=== PATIENT | female | born 1980 | race Caucasian/White ===

== ENCOUNTER 2024-07-23 12:45 | Observation (INO) | payer BC, MEDICAID, SELFPAY ==
[2024-07-23] VITALS (9 sets, daily range): BP systolic 101–130; BP diastolic 70–85; PULSE 77–96; RESP 11–20; TEMP 35.9–36.8; O2SAT 96–100; BMI 27.9; BMI 28.5
--- NOTE | 2024-07-23 12:57 | ED_ITS ---
<Statement entered by Elana Osborne DO - 07/23/24 15:27> I was consulted by the LLUVIA, and we discussed the complexity of the problems being addressed. I approved the treatment and management plan for this patient's care in the emergency department, thus performing a substantive portion of the medical decision making. Elana Osborne DO Discharge Plan Disposition Patient Disposition: Admitted Clinical Impressions Clinical Impression: Enterocolitis, Hypokalemia, Hypomagnesemia, Hypocalcemia Discharge ED Provider: Elana Osborne General Adult HPI <KRUNAL Cid - Last Filed: 07/23/24 14:55> General Chief complaint: Abdominal Pain Stated complaint: nausea, vomiting, diarrhea Time Seen by Provider: 07/23/24 12:57 Mode of Arrival: Ambulatory Source of Information: Patient Description of Symptoms (Recalled from ER Triage Doc. by RN): PT presents for evaluation of ABD pain, N/V and diarrhea x7 days. PT was on ABX for a UTI prior to GI issues. PT claims when she eats her stomach bloats and she has frequent belching. PT states the stool has a very foul odor starting today. History of Present Illness HPI narrative: Patient presents for evaluation of diarrhea. Patient states that she has had 7 days of copious amounts of diarrhea. It started with some abdominal cramping and vomiting however the vomiting has subsided but the watery stools have not. She is going greater than 10 times a day. She denies any current fever chills hemoptysis hematochezia melena hematemesis hematuria dysuria. As soon as she eats or drinks anything she has a bowel movement. She reports diffuse crampy abdominal pain with no focal tenderness. Related Data Allergies Allergy/AdvReac Type Severity Reaction Status Date / Time No Known Allergies Allergy Verified 07/23/24 13:13 PFSH <KRUNAL Cid - Last Filed: 07/23/24 14:55> [facility] Disclaimer: The information contained in this section may have been updated after the patient was seen, as this information can be updated by other users. Social History (Updated 07/23/24 @ 14:55 by KRUNAL Cid) Smoking Status: Never smoker alcohol intake: never current occupational status: employed Travel in the last 8 weeks?: None Have you lived/traveled outside US in past 30 days?: No Contact w/someone who lives/traveled outside US past 30 days?: No Exposure to someone with infectious disease in past 14 days?: No Do you have a fever (greater than 100.4 F or 38 C)?: No Have you tested positive for COVID-19?: No Exposed to someone with COVID-19 in past 14 days?: No Do you have a sore throat?: No Do you have a cough?: No Do you have any weakness?: Yes Do you have any diarrhea?: Yes Are you experiencing any unusual bleeding?: No Do you have any muscle aches/pain?: No Do you have any abdominal pain?: Yes Are you experiencing loss of taste or smell?: No <KRUNAL Cid - Last Filed: 07/23/24 14:55> ROS Obtained: Yes Systems reviewed as appropriate & no additional complaints except as documented Physical Exam <KRUNAL Cid - Last Filed: 07/23/24 14:55> General General appearance: alert and in no apparent distress Respiratory Respiratory exam: Present normal lung sounds bilaterally Cardiovascular Cardiovascular exam: Present regular rate Neurological Exam Neurological exam: Present alert and oriented X3 Medical Decision Making <KRUNAL Cid - Last Filed: 07/23/24 14:55> Medical Records Medical records reviewed: Yes I reviewed the patient's medical records. Screening: Per USPSTF and CDC recommendations, given the prevalence of disease in our region, it is our hospital?s policy to screen for HIV and viral Hepatitis for all patients aged 18 and over and those with ongoing risk factors. David Inquiry Pt receiving controlled substance: No Vital Signs: 07/23/24 12:47 07/23/24 13:18 07/23/24 14:00 Temperature 96.7 F L Temperature Source Oral Pulse Rate 77 91 H Pulse Rate [Right] 96 H Respiratory Rate 18 13 15 Blood Pressure 125/79 123/79 Blood Pressure [Right Arm] 107/80 L Blood Pressure Mean [Right Arm] 89 02 Sat by Pulse Oximetry 100 96 98 Oxygen Delivery Method Room Air Room Air 07/23/24 14:30 07/23/24 15:01 Temperature 98.2 F Temperature Source Pulse Rate 88 80 Pulse Rate [Right] Respiratory Rate 11 L 20 Blood Pressure 125/85 130/80 Blood Pressure [Right Arm] Blood Pressure Mean [Right Arm] 02 Sat by Pulse Oximetry 97 Oxygen Delivery Method Room Air Room Air Lab Data Lab results reviewed: Yes I reviewed the patient's lab results. Lab Results 07/23/24 13:10: Urine Color Yellow, Urine Appearance Sl cloudy, Urine pH 6.0, Ur Specific [place] <= 1.005, Urine Protein Negative, Urine Glucose (UA) Negative, Urine Ketones Negative, Urine Blood Negative, Urine Nitrate Negative, Urine Bilirubin Negative, Urine Urobilinogen 0.2, Ur Leukocyte Esterase Negative, Urine RBC None, Urine WBC None, Ur Squamous Epith Cells 10-20, Urine Bacteria Trace 07/23/24 13:18: WBC 10.2, RBC 5.35, Hgb 14.6, Hct 42.7, MCV 79.8 L, MCH 27.3, MCHC 34.2, RDW 13.2, Plt Count 334, MPV 10.3, Neut % (Auto) 67.6, Lymph % (Auto) 19.3, [place] % (Auto) 8.6, Eos % (Auto) 3.9, Baso % (Auto) 0.3, Neut # (Auto) 6.9, Lymph # (Auto) 2.0, [place] # (Auto) 0.9, Eos # (Auto) 0.4, Baso # (Auto) 0.0, ESR 13, Sodium 139, Potassium 2.6 L*, Chloride 103, Carbon Dioxide 28, Anion Gap 10.6, BUN 6 L, Creatinine 0.80, Estimated Creat Clear 113, Estimated GFR 79, Est GFR ( Amer) 95, Glucose 86, Calcium 8.0 L, Magnesium 1.1 L, Total Bilirubin 1.8 H, AST 50 H, ALT 85 H, Alkaline Phosphatase 69, C-Reactive Protein 40.7 H, Total Protein 7.5, Albumin 4.4, Globulin 3.1, Albumin/Globulin Ratio 1.4, Procalcitonin 0.052 07/23/24 13:18 07/23/24 13:18 Orders (Tests/Meds): ED MEDICATIONS Generic Name Dose Route Start Last Admin Trade Name Freq PRN Reason Stop Dose Admin Calcium Gluconate/Sodium Chloride 2 gm in 100 mls @ 50 mls/hr 07/23/24 13:54 07/23/24 14:04 Calcium Gluconate 2,000mg/100ml Nacl Premix IV 07/23/24 15:53 50 mls/hr ONCE ONE Administration Potassium Chloride/Water 100 mls @ 50 mls/hr 07/23/24 13:55 07/23/24 14:10 Potassium Chloride 20meq/100ml Ivpb IV 07/23/24 19:54 50 mls/hr Q2H GOLDEN Administration Discontinued Medications Generic Name Dose Route Start Last Admin Trade Name Freq PRN Reason Stop Dose Admin Sodium Chloride 1,000 mls @ 999 mls/hr 07/23/24 13:08 07/23/24 13:31 Sod Chlor 0.9% 1000ml Bag IV 07/23/24 14:08 999 mls/hr .Q1H1M ONE Administration Iopamidol 75 ml 07/23/24 13:24 07/23/24 13:24 Iopamidol-370 (76%);100ml Bottle IV 07/23/24 13:25 75 ml ONCE ONE Administration Ketorolac Tromethamine 15 mg 07/23/24 13:08 07/23/24 13:18 Ketorolac 30mg/Ml Vial IV 07/23/24 13:09 15 mg ONCE ONE Administration Ondansetron HCl 4 mg 07/23/24 13:08 07/23/24 13:18 Ondansetron 4mg/2ml Vial IV 07/23/24 13:09 4 mg ONCE ONE Administration Potassium Chloride 60 meq 07/23/24 13:53 07/23/24 14:04 Potassium Chloride 20meq Tab PO 07/23/24 13:54 60 meq ONCE ONE Administration Sodium Chloride 10 ml 07/23/24 13:24 07/23/24 13:24 Sodium Chloride 0.9% 10ml Syr (Rad Only) IV 07/23/24 13:25 10 ml ONCE ONE Administration ORDERS Category Date Time Status CT abdomen pelvis w con Stat Cat Scan 07/23/24 13:08 Completed CBC w/Auto Diff [Complete Blood Count Auto Diff] Stat Lab 07/23/24 13:18 Completed CMP [Comprehensive Metabolic Panel] Stat Lab 07/23/24 13:18 Completed CRP [C-Reactive Protein] Stat Lab 07/23/24 13:18 Completed Diarrhea 23 Panel, PCR Stat Lab 07/23/24 13:34 Received ESR [Erythrocyte Sedimentation Rate] Stat Lab 07/23/24 13:18 Completed Lactic Acid Stat Lab 07/23/24 13:09 Ordered Magnesium Stat Lab 07/23/24 13:18 Completed Procalcitonin Stat Lab 07/23/24 13:18 Completed UA [Urinalysis and Microscopic] Stat Lab 07/23/24 13:10 Completed Medical Decision Narrative: In summary patient is a 44-year-old female who presents to the emergency department for evaluation of 7 days of diarrhea. Patient is status post cholecystectomy appendectomy and total abdominal hysterectomy. She has had a history of uterine cancer but did not require radiation or chemotherapy. Patient is initially with a blood pressure of 107/80 heart rate 96 respiratory rate 18 satting at 100% on room air upon arrival, afebrile at 96.7. Physical exam is remarkable for mild abdominal tenderness diffusely no focal tenderness no rebound no guarding no rigidity abdomen soft bowel sounds hyperactive. Differential diagnosis includes enteritis versus diverticulitis versus pancreatitis versus UTI versus partial bowel obstruction etc. Initial workup will be conducted with hematologic labs diarrhea panel urinalysis CT scan abdomen pelvis. Initial interventions include crystalloid bolus and Zofran. Initial workup reviewed by me shows her hematologic labs significant for a white count of 10.2 normal H&H with no neutrophilic shift, potassium is 2.6 BUN is 6 creatinine is 0.8 GFR 79 calcium is 8 albumin is 4.4 magnesium is 1.1 total bilirubin is 1.8 AST is 50 ALT is 85 alk phos is 69 procalcitonin is 0.052 urinalysis is bland and my informal interpretation of her CT scan abdomen pelvis shows fluid-filled loops of large and small bowel with distal colonic wall thickening consistent with enterocolitis. Given this I had interactive discussion with hospital medicine regarding patient LINDER presentation and management and she will be admitted for further evaluation and care for enterocolitis and electrolyte abnormalities requiring repletion. I have already began potassium calcium and magnesium repletion IV currently. <Elana Osborne, DO - Last Filed: 07/23/24 15:27> Vital Signs: 07/23/24 12:47 07/23/24 13:18 07/23/24 14:00 Temperature 96.7 F L Temperature Source Oral Pulse Rate 77 91 H Pulse Rate [Right] 96 H Respiratory Rate 18 13 15 Blood Pressure 125/79 123/79 Blood Pressure [Right Arm] 107/80 L Blood Pressure Mean [Right Arm] 89 02 Sat by Pulse Oximetry 100 96 98 Oxygen Delivery Method Room Air Room Air 07/23/24 14:30 07/23/24 15:01 Temperature 98.2 F Temperature Source Pulse Rate 88 80 Pulse Rate [Right] Respiratory Rate 11 L 20 Blood Pressure 125/85 130/80 Blood Pressure [Right Arm] Blood Pressure Mean [Right Arm] 02 Sat by Pulse Oximetry 97 Oxygen Delivery Method Room Air Room Air Lab Data Lab Results 07/23/24 13:10: Urine Color Yellow, Urine Appearance Sl cloudy, Urine pH 6.0, Ur Specific [place] <= 1.005, Urine Protein Negative, Urine Glucose (UA) Negative, Urine Ketones Negative, Urine Blood Negative, Urine Nitrate Negative, Urine Bilirubin Negative, Urine Urobilinogen 0.2, Ur Leukocyte Esterase Negative, Urine RBC None, Urine WBC None, Ur Squamous Epith Cells 10-20, Urine Bacteria Trace 07/23/24 13:18: WBC 10.2, RBC 5.35, Hgb 14.6, Hct 42.7, MCV 79.8 L, MCH 27.3, MCHC 34.2, RDW 13.2, Plt Count 334, MPV 10.3, Neut % (Auto) 67.6, Lymph % (Auto) 19.3, [place] % (Auto) 8.6, Eos % (Auto) 3.9, Baso % (Auto) 0.3, Neut # (Auto) 6.9, Lymph # (Auto) 2.0, [place] # (Auto) 0.9, Eos # (Auto) 0.4, Baso # (Auto) 0.0, ESR 13, Sodium 139, Potassium 2.6 L*, Chloride 103, Carbon Dioxide 28, Anion Gap 10.6, BUN 6 L, Creatinine 0.80, Estimated Creat Clear 113, Estimated GFR 79, Est GFR ( Amer) 95, Glucose 86, Calcium 8.0 L, Magnesium 1.1 L, Total Bilirubin 1.8 H, AST 50 H, ALT 85 H, Alkaline Phosphatase 69, C-Reactive Protein 40.7 H, Total Protein 7.5, Albumin 4.4, Globulin 3.1, Albumin/Globulin Ratio 1.4, Procalcitonin 0.052 Orders (Tests/Meds): ED MEDICATIONS Generic Name Dose Route Start Last Admin Trade Name Freq PRN Reason Stop Dose Admin Calcium Gluconate/Sodium Chloride 2 gm in 100 mls @ 50 mls/hr 07/23/24 13:54 07/23/24 14:04 Calcium Gluconate 2,000mg/100ml Nacl Premix IV 07/23/24 15:53 50 mls/hr ONCE ONE Administration Potassium Chloride/Water 100 mls @ 50 mls/hr 07/23/24 13:55 07/23/24 14:10 Potassium Chloride 20meq/100ml Ivpb IV 07/23/24 19:54 50 mls/hr Q2H GOLDEN Administration Discontinued Medications Generic Name Dose Route Start Last Admin Trade Name Freq PRN Reason Stop Dose Admin Sodium Chloride 1,000 mls @ 999 mls/hr 07/23/24 13:08 07/23/24 13:31 Sod Chlor 0.9% 1000ml Bag IV 07/23/24 14:08 999 mls/hr .Q1H1M ONE Administration Iopamidol 75 ml 07/23/24 13:24 07/23/24 13:24 Iopamidol-370 (76%);100ml Bottle IV 07/23/24 13:25 75 ml ONCE ONE Administration Ketorolac Tromethamine 15 mg 07/23/24 13:08 07/23/24 13:18 Ketorolac 30mg/Ml Vial IV 07/23/24 13:09 15 mg ONCE ONE Administration Ondansetron HCl 4 mg 07/23/24 13:08 07/23/24 13:18 Ondansetron 4mg/2ml Vial IV 07/23/24 13:09 4 mg ONCE ONE Administration Potassium Chloride 60 meq 07/23/24 13:53 07/23/24 14:04 Potassium Chloride 20meq Tab PO 07/23/24 13:54 60 meq ONCE ONE Administration Sodium Chloride 10 ml 07/23/24 13:24 07/23/24 13:24 Sodium Chloride 0.9% 10ml Syr (Rad Only) IV 07/23/24 13:25 10 ml ONCE ONE Administration ORDERS Category Date Time Status CT abdomen pelvis w con Stat Cat Scan 07/23/24 13:08 Completed CBC w/Auto Diff [Complete Blood Count Auto Diff] Stat Lab 07/23/24 13:18 Completed CMP [Comprehensive Metabolic Panel] Stat Lab 07/23/24 13:18 Completed CRP [C-Reactive Protein] Stat Lab 07/23/24 13:18 Completed Diarrhea 23 Panel, PCR Stat Lab 07/23/24 13:34 Received ESR [Erythrocyte Sedimentation Rate] Stat Lab 07/23/24 13:18 Completed Lactic Acid Stat Lab 07/23/24 13:09 Ordered Magnesium Stat Lab 07/23/24 13:18 Completed Procalcitonin Stat Lab 07/23/24 13:18 Completed UA [Urinalysis and Microscopic] Stat Lab 07/23/24 13:10 Completed Critical Care <KRUNAL Cid - Last Filed: 07/23/24 14:55> Critical Care Time Critical Care Time: Yes Attestation: On 07/23/24, the high probability of a clinically significant, sudden or life threatening deterioration of the following system(s) required my full and direct attention, intervention and personal management. The time I documented below is in addition to time spent performing reported procedures but includes the following listed in this critical care notation. Total Time Total Critical Care Time: 30 <Elana Osborne DO - Last Filed: 07/23/24 15:27> Total Time Total Critical Care Time: 35
--- NOTE | 2024-07-23 13:08 | CT_ITS ---
FINAL REPORT TECHNIQUE: Thin section axial images were obtained through the abdomen after intravenous contrast. Reconstruction images were obtained from the axial data. Exam was performed using dose reduction techniques. CLINICAL HISTORY: 7 days of diarrhea nausea FINDINGS: The lung bases are clear. The liver is homogeneous. The gallbladder is absent. The spleen, adrenal glands, and pancreas are unremarkable. There is no hydronephrosis or solid renal mass. There is no evidence of small bowel obstruction. There is no abdominal lymphadenopathy or ascites. There are mildly prominent fluid-filled small bowel loops. The colon is mildly distended with fluid and there is mild distal colonic wall thickening. Findings are most consistent with enterocolitis. The appendix is surgically absent. The uterus is absent. There is no pelvic lymphadenopathy or ascites. No acute osseous abnormalities identified. IMPRESSION: Fluid-filled large and small bowel loops with distal colon wall thickening most consistent with enterocolitis. Reviewed, Interpreted and Dictated by Charissa Meeks MD Transcribed by Anahi Vitale Authenticated and . [facility]
[2024-07-23] MEDS: KETOROLAC 30MG/ML VIAL 15 MG IV (13:18)
[2024-07-23] MEDS: ONDANSETRON 4MG/2ML VIAL 4 MG IV ×2 (13:18→22:30)
[2024-07-23] MEDS: IOPAMIDOL-370 (76%);100ML BOTTLE 75 ML IV (13:24)
[2024-07-23] MEDS: SODIUM CHLORIDE 0.9% 10ML SYR (RAD ONLY) 10 ML IV (13:24)
[2024-07-23 13:27] LABS: Basophils % 0.3 % (0.1-2.0); Eosinophils # 0.4 Kmm3 (0.0-0.4); Eosinophils % 3.9 % (0.1-12.0); Hematocrit 42.7 % (37.0-47.0); Hemoglobin 14.6 g/dL (12.2-16.2); Immature Granulocytes # 0.03 10^3uL; Immature Granulocytes % 0.3 %; Lymphocytes % 19.3 % (10-50); Mean Corpuscular HGB Conc 34.2 g/dL (31.8-35.4); Mean Corpuscular Hemoglobin 27.3 pg (27.0-31.2); Mean Corpuscular Volume 79.8 fl (81-99); Mean Platelet Volume 10.3 fl (7.4-10.4); Monocytes # 0.9 K/mm3 (0.1-1.0); Monocytes % 8.6 % (1.7-9.3); Neutrophils # 6.9 K/mm3 (1.8-7.8); Neutrophils % 67.6 % (37.0-80.0); Nucleated Red Blood Cells # 0 10^3/uL; Nucleated Red Blood Cells % 0 %; Platelet Count 334 K/mm3 (142-424); Red Blood Count 5.35 M/mm3 (4.20-5.40); Red Cell Distribution Width 13.2 % (11.5-17.5); Red Cell Distribution Width-SD 37.2 fL; White Blood Count 10.2 K/mm3 (4.8-10.8)
[2024-07-23] MEDS: 0.9 % SODIUM CHLORIDE 1000ML 1,000 ML 999 ML IV (13:31)
[2024-07-23 13:40] LABS: Microscopic, Urine URINE MICROSCOPIC (MICROSCOPIC)
[2024-07-23 13:40] LABS: Adenovirus F 40/41, stool Not Detected (NotDetected); Astrovirus Not Detected (NotDetected); Campylobacter Not Detected (NotDetected); Clostridium Difficile A/B, PCR Not Detected (NotDetected); Cryptosporidium Not Detected (NotDetected); Cyclospora Cayetanesis Not Detected (NotDetected); Entamoeba histolytica Not Detected (NotDetected); Enteroaggregative E coli Not Detected (NotDetected); Enteropathogenic E coli Not Detected (NotDetected); Enterotoxigenic E coli Not Detected (NotDetected); Giardia lamblia Not Detected (NotDetected); Norovirus Not Detected (NotDetected); Plesimonas Shigalloides, PCR Not Detected (NotDetected); Rotavirus A Not Detected (NotDetected); Salmonella, PCR Not Detected (NotDetected); Sapovirus Not Detected (NotDetected); Shiga-like toxin E coli Not Detected (NotDetected); Shigella Enterovasive E coli Not Detected (NotDetected); Vibrio Cholerae Not Detected (NotDetected); Vibrio, PCR Not Detected (NotDetected); Yersinia Entercolitica, PCR Not Detected (NotDetected)
[2024-07-23 13:42] LABS: Alanine Aminotransferase 85 U/L (12-78); Albumin Level 4.4 g/dl (3.5-5.0); Albumin/Globulin Ratio 1.4 (1.1-1.8); Alkaline Phosphatase 69 U/L (38-126); Anion Gap 10.6 mEq/L (5-15); Aspartate Amino Transferase 50 U/L (14-36); Bilirubin,Total 1.8 mg/dl (0.2-1.3); Blood Urea Nitrogen 6 mg/dl (7-17); Carbon Dioxide 28 mmol/L (22.0-30.0); Chloride 103 mmol/L (98-107); Creatinine Clearance Estimated 113 mL/min (50-200); Estimated Glomerular Filt Rate 79 ml/min (>60); GFR (African American) 95 ML/MIN (>60); Globulin 3.1 g/dL (1.3-3.2); Glucose 86 mg/dl (74-100); Sodium 139 mmol/L (136-145); Total Protein,Serum 7.5 g/dl (6.3-8.2)
[2024-07-23 13:43] LABS: Magnesium 1.1 mg/dl (1.6-2.3)
[2024-07-23 13:45] LABS: Appearance,Urine SL CLOUDY (Clear); Bilirubin,Urine Negative (Negative); Blood, Urine Negative (Negative); Color,Urine YELLOW (Yellow); Glucose,Urine (UA) Negative (Negative); Ketones,Urine Negative (Negative); Leukocyte Esterase,Urine Negative (Negative); Nitrate,Urine Negative (Negative); Protein,Urine Negative (Negative); Specific Gravity, Urine <= 1.005 (1.005-1.030); Urobilinogen,Urine 0.2 EU/dl (0.2)
[2024-07-23 13:47] LABS: C-Reactive Protein 40.7 mg/L (0-4)
[2024-07-23 13:49] LABS: Potassium 2.6 mmoL/L (3.5-5.1)
[2024-07-23 13:58] LABS: Procalcitonin 0.052 ng/mL (0.0-2.0)
[2024-07-23 14:04] LABS: Bacteria,Urine Trace /lpf
[2024-07-23] MEDS: POTASSIUM CHLORIDE 20MEQ TAB 60 MEQ PO (14:04)
[2024-07-23] MEDS: CALCIUM GLUC IN NACL, ISO-OSM 2 GM/100 ML BAG IV (14:04)
[2024-07-23] MEDS: KCl 20mEq/100ml 100 ML 50 MEQ IV ×3 (14:10→17:42)
[2024-07-23 14:20] LABS: Erythrocyte Sedimentation Rate 13 mm/hr (0-20)
--- NOTE | 2024-07-23 14:49 | PC.NURSE ---
called house for bed placement.
--- NOTE | 2024-07-23 15:52 | EXP.HP ---
History of Present Illness *Admission Date: 07/23/24 *Reason for visit:: Diarrhea *History of present illness: Mckenzie Miller is a 44-year-old female with a medical history significant for rheumatoid arthritis who presents with profuse diarrhea for a week and weakness. She states she is having diarrhea several times a day, very loose, dark, foul-smelling for 1 week. She initially started with nausea/vomiting but the vomiting has subsided but continues to have nausea. She also states she feels bloated after eating, and that she has diffuse mild abdominal pain. No recent travel history, changes diet. She does state that she was treated for UTI with Bactrim for 3 days about 5 days ago but her diarrhea was already present by then. Denies fever/chills, chest pain, shortness of breath. Of note, patient has a strong family history of Crohn's disease. Workup in the ED significant for potassium 2.6, magnesium 1.1, AST/ALT mildly elevated, CRP 40, MCV of 79.8. CT abdomen/pelvis showed consistent with enterocolitis. Case discussed with ED provider and she was made to admit patient for severe electrolyte abnormalities, diarrhea. [facility] Disclaimer: The information contained in this section may have been updated after the patient was seen, as this information can be updated by other users. Medical History (Updated 07/23/24 @ 16:43 by Jody Kumar APRN) UTI (urinary tract infection) Uterine cancer Pneumonia Rheumatoid arthritis Asthma Family History (Updated 07/23/24 @ 16:02 by Melida Joseph RN) Other Acute Crohn's disease Dementia Heart attack Hyperlipidemia Hypertension Renal failure Social History (Updated 07/23/24 @ 16:04 by Melida Joseph RN) Smoking Status: Never smoker alcohol intake: never current occupational status: employed Travel in the last 8 weeks?: None Have you lived/traveled outside US in past 30 days?: No Contact w/someone who lives/traveled outside US past 30 days?: No Exposure to someone with infectious disease in past 14 days?: No Do you have a fever (greater than 100.4 F or 38 C)?: No Have you tested positive for COVID-19?: No Exposed to someone with COVID-19 in past 14 days?: No Do you have a sore throat?: No Do you have a cough?: No Do you have any weakness?: Yes Do you have any diarrhea?: Yes Are you experiencing any unusual bleeding?: No Do you have any muscle aches/pain?: No Do you have any abdominal pain?: Yes Are you experiencing loss of taste or smell?: No Meds Home Medications and Allergies Home Medications ?Medication ?Instructions ?Recorded ?Confirmed ?Type cyclobenzaprine 10 mg tablet 10 mg PO BID 07/23/24 07/23/24 History diclofenac sodium 75 mg 75 mg PO BID PRN Pain (Scale Score 07/23/24 07/23/24 History tablet,delayed release 4-6) dicyclomine 20 mg tablet 20 mg PO BID 07/23/24 07/23/24 History linaclotide 145 mcg capsule 145 mcg PO DAILY 07/23/24 07/23/24 History (Linzess) loperamide 2 mg capsule 2 mg PO TID 07/23/24 07/23/24 History montelukast 10 mg tablet 10 mg PO DAILY 07/23/24 07/23/24 History ondansetron 4 mg disintegrating 4 mg PO Q8 07/23/24 07/23/24 History tablet vortioxetine 20 mg tablet 20 mg PO DAILY 07/23/24 07/23/24 History (Trintellix) New Prescriptions to Start Prescriptions: Allergies Allergy/AdvReac Type Severity Reaction Status Date / Time No Known Allergies Allergy Verified 07/23/24 13:13 Exam Data for Last 24 hours Vital signs and Labs for Last 24 Hours: Temp Pulse Resp BP Pulse Ox O2 Del Method 97.9 F 81 17 101/70 L 98 Room Air 07/23/24 15:14 07/23/24 15:14 07/23/24 15:14 07/23/24 15:14 07/23/24 15:14 07/23/24 15:01 Laboratory Results - last 24 hr 07/23/24 13:10: Urine Color Yellow, Urine Appearance Sl cloudy, Urine pH 6.0, Ur Specific [place] <= 1.005, Urine Protein Negative, Urine Glucose (UA) Negative, Urine Ketones Negative, Urine Blood Negative, Urine Nitrate Negative, Urine Bilirubin Negative, Urine Urobilinogen 0.2, Ur Leukocyte Esterase Negative, Urine RBC None, Urine WBC None, Ur Squamous Epith Cells 10-20, Urine Bacteria Trace 07/23/24 13:18: WBC 10.2, RBC 5.35, Hgb 14.6, Hct 42.7, MCV 79.8 L, MCH 27.3, MCHC 34.2, RDW 13.2, Plt Count 334, MPV 10.3, Neut % (Auto) 67.6, Lymph % (Auto) 19.3, [place] % (Auto) 8.6, Eos % (Auto) 3.9, Baso % (Auto) 0.3, Neut # (Auto) 6.9, Lymph # (Auto) 2.0, [place] # (Auto) 0.9, Eos # (Auto) 0.4, Baso # (Auto) 0.0, ESR 13, Sodium 139, Potassium 2.6 L*, Chloride 103, Carbon Dioxide 28, Anion Gap 10.6, BUN 6 L, Creatinine 0.80, Estimated Creat Clear 113, Estimated GFR 79, Est GFR ( Amer) 95, Glucose 86, Calcium 8.0 L, Magnesium 1.1 L, Total Bilirubin 1.8 H, AST 50 H, ALT 85 H, Alkaline Phosphatase 69, C-Reactive Protein 40.7 H, Total Protein 7.5, Albumin 4.4, Globulin 3.1, Albumin/Globulin Ratio 1.4, Procalcitonin 0.052 I & O for Last 24 hours: Intake & Output 07/20/24 07/21/24 07/22/24 07/23/24 23:59 23:59 23:59 23:59 Intake Total 155 / 155 Balance 155 / 155 Weight 80.286 kg Constitutional Constitutional: no acute distress *Routine HEENT Exam Head: Present normocephalic Eye: Present EOMI and PERRL ENT: Present mucous membranes moist *Routine Neck Exam Neck: Present supple; Absent lymphadenopathy *Routine Respiratory Exam Respiratory: Present CTA bilaterally *Routine Cardiovascular Exam Cardiovascular: Present RRR *Routine Abdominal Exam Abdominal: Present soft, normoactive bowel sounds, tenderness and distended Comments: Mild diffuse tenderness to palpation. *Routine Rectal Exam Rectal:: deferred *Routine Genitalia Exam Genitalia:: deferred *Routine Extremities Exam Extremities: Absent cyanosis, clubbing or edema *Routine Skin Exam Skin: Present warm; Absent rash *Routine Neurological Exam Neurological: Present alert and oriented X3 Assessment and Plan *Assessment and plan (1) Acute gastroenteritis: Status: Acute Category: Medical Code(s): K52.9 - Noninfective gastroenteritis and colitis, unspecified Plan Mckenzie Miller is a 44-year-old female with a medical history significant for rheumatoid arthritis who presents with profuse diarrhea for a week and weakness. She states she is having diarrhea several times a day, very loose, dark, foul-smelling for 1 week. She initially started with nausea/vomiting but the vomiting has subsided but continues to have nausea. She also states she feels bloated after eating, and that she has diffuse mild abdominal pain. No recent travel history, changes diet. She does state that she was treated for UTI with Bactrim for 3 days about 5 days ago but her diarrhea was already present by then. Denies fever/chills, chest pain, shortness of breath. Of note, patient has a strong family history of Crohn's disease. Workup in the ED significant for potassium 2.6, magnesium 1.1, AST/ALT mildly elevated, CRP 40, MCV of 79.8. CT abdomen/pelvis showed consistent with enterocolitis. Case discussed with ED provider and she was made to admit patient for severe electrolyte abnormalities, diarrhea. #Intractable diarrhea #Gastroenteritis #Hypokalemia #Hypomagnesemia ? One week onset of profuse, watery, foul-smelling diarrhea. Was on Bactrim for 3 days but diarrhea had already started by then. Has had multiple UTIs in the past year requiring antibiotics. ? Does have mildly elevated AST/ALT suggesting viral illness. Renal function stable. ? Follow-up stool PCR. However, presentation suspicious for C. difficile. Will treat empirically for now until stool PCR results. ? Repleting potassium, magnesium. ? Continuous cardiac telemetry. #Microcytosis ? Follow-up iron panel, folate, B12. #Rheumatoid arthritis ? Continue weekly Trintellix. Full code DVT prophylaxis: Lovenox 40 mg
--- NOTE | 2024-07-23 16:42 | EXP.GE.CONS ---
History of Present Illness *History of present illness: This is a pleasant 44-year-old female who presented to the ER with complaints of a week of nausea vomiting and diarrhea. She has had poor p.o. intake of bloating with eating and abdominal cramping with eating. She reports that the vomiting stopped about 2 days ago but she still having nausea and diarrhea. The patient normally has chronic constipation and takes Linzess. This is an abrupt change for her. Her CRP was elevated at 40.7 although sed rate normal. CBC was relatively unremarkable. No melena hematochezia or mucus in her stool. She is going 10-14 times a day with several electrolyte imbalances, including calcium, magnesium and potassium. She is moderately distended with gas bloat and tender to palpation throughout her abdomen. She has been on antibiotics a couple times in the past [address] scan showed mild colonic wall thickening consistent with enterocolitis. She has a family history of Crohn's disease in her brother and her mother. She has had a colonoscopy with that was 10 years ago. She also had elevated CRP at 40.7 and elevated bilirubin at 1.8, AST elevated at 50, ALT elevated 85 and an alk phos of 69. She denies known elevations in her liver enzymes previously but she does note that she thinks she had some scleral icterus a few months ago. [facility] Disclaimer: The information contained in this section may have been updated after the patient was seen, as this information can be updated by other users. Medical History (Updated 07/23/24 @ 16:43 by Jody Kumar APRN) UTI (urinary tract infection) Uterine cancer Pneumonia Rheumatoid arthritis Asthma Family History (Updated 07/23/24 @ 16:02 by Melida Joseph RN) Other Acute Crohn's disease Dementia Heart attack Hyperlipidemia Hypertension Renal failure Social History (Updated 07/23/24 @ 16:04 by Melida Joseph RN) Smoking Status: Never smoker alcohol intake: never current occupational status: employed Travel in the last 8 weeks?: None Have you lived/traveled outside [place] in past 30 days?: No Contact w/someone who lives/traveled outside US past 30 days?: No Exposure to someone with infectious disease in past 14 days?: No Do you have a fever (greater than 100.4 F or 38 C)?: No Have you tested positive for COVID-19?: No Exposed to someone with COVID-19 in past 14 days?: No Do you have a sore throat?: No Do you have a cough?: No Do you have any weakness?: Yes Do you have any diarrhea?: Yes Are you experiencing any unusual bleeding?: No Do you have any muscle aches/pain?: No Do you have any abdominal pain?: Yes Are you experiencing loss of taste or smell?: No Review of Systems Review of Systems Review of systems:: pertinent systems reviewed and negative unless documented below Constitutional Constitutional: Reports system reviewed and no additional complaints, except as documented and Reports poor appetite Eyes Comments: Scleral icterus a few months ago ENT Ears, Nose, Mouth, and Throat: Reports system reviewed and no additional complaints, except as documented *Cardiovascular Cardiovascular: Reports system reviewed and no additional complaints, except as documented *Respiratory Respiratory: Reports system reviewed and no additional complaints, except as documented *Gastrointestinal Gastrointestinal: Reports abdominal pain, Reports bloating, Reports change in bowel habits, Reports change in stool character, Reports cramping, Reports diarrhea, Reports early satiety, Reports nausea and Reports vomiting Comments: Dark stools *Genitourinary Genitourinary: Reports system reviewed and no additional complaints, except as documented *Musculoskeletal Musculoskeletal: Reports system reviewed and no additional complaints, except as documented *Neurologic Neurologic: Reports system reviewed and no additional complaints, except as documented Meds Home Medications and Allergies Home Medications ?Medication ?Instructions ?Recorded ?Confirmed ?Type cyclobenzaprine 10 mg tablet 10 mg PO BID 07/23/24 07/23/24 History diclofenac sodium 75 mg 75 mg PO BID PRN Pain (Scale Score 07/23/24 07/23/24 History tablet,delayed release 4-6) dicyclomine 20 mg tablet 20 mg PO BID 07/23/24 07/23/24 History linaclotide 145 mcg capsule 145 mcg PO DAILY 07/23/24 07/23/24 History (Linzess) loperamide 2 mg capsule 2 mg PO TID 07/23/24 07/23/24 History montelukast 10 mg tablet 10 mg PO DAILY 07/23/24 07/23/24 History ondansetron 4 mg disintegrating 4 mg PO Q8 07/23/24 07/23/24 History tablet vortioxetine 20 mg tablet 20 mg PO DAILY 07/23/24 07/23/24 History (Trintellix) New Prescriptions to Start Prescriptions: Allergies Allergy/AdvReac Type Severity Reaction Status Date / Time No Known Allergies Allergy Verified 07/23/24 13:13 Exam (Inpt) Vital signs and Labs for Last 24 Hours: Temp Pulse Resp BP Pulse Ox O2 Del Method 97.9 F 81 17 101/70 L 98 Room Air 07/23/24 15:14 07/23/24 15:14 07/23/24 15:14 07/23/24 15:14 07/23/24 15:14 07/23/24 16:36 Laboratory Results - last 24 hr 07/23/24 13:10: Urine Color Yellow, Urine Appearance Sl cloudy, Urine pH 6.0, Ur Specific [place] <= 1.005, Urine Protein Negative, Urine Glucose (UA) Negative, Urine Ketones Negative, Urine Blood Negative, Urine Nitrate Negative, Urine Bilirubin Negative, Urine Urobilinogen 0.2, Ur Leukocyte Esterase Negative, Urine RBC None, Urine WBC None, Ur Squamous Epith Cells 10-20, Urine Bacteria Trace 07/23/24 13:18: WBC 10.2, RBC 5.35, Hgb 14.6, Hct 42.7, MCV 79.8 L, MCH 27.3, MCHC 34.2, RDW 13.2, Plt Count 334, MPV 10.3, Neut % (Auto) 67.6, Lymph % (Auto) 19.3, [place] % (Auto) 8.6, Eos % (Auto) 3.9, Baso % (Auto) 0.3, Neut # (Auto) 6.9, Lymph # (Auto) 2.0, [place] # (Auto) 0.9, Eos # (Auto) 0.4, Baso # (Auto) 0.0, ESR 13, Sodium 139, Potassium 2.6 L*, Chloride 103, Carbon Dioxide 28, Anion Gap 10.6, BUN 6 L, Creatinine 0.80, Estimated Creat Clear 113, Estimated GFR 79, Est GFR ( Amer) 95, Glucose 86, Calcium 8.0 L, Magnesium 1.1 L, Total Bilirubin 1.8 H, AST 50 H, ALT 85 H, Alkaline Phosphatase 69, C-Reactive Protein 40.7 H, Total Protein 7.5, Albumin 4.4, Globulin 3.1, Albumin/Globulin Ratio 1.4, Procalcitonin 0.052 I & O for Labs for Last 24 Hours: Intake & Output 07/21/24 07/22/24 07/23/24 07/24/24 11:59 11:59 11:59 11:59 Intake Total 155 Balance 155 Weight 80.286 kg Constitutional: no acute distress Head: Present normocephalic and atraumatic Respiratory: Present CTA bilaterally Cardiac: Present Reg Rate and Rhythm GI: Present soft, distention (Moderately distended), tenderness (TTP throughout abdomen) and hyperactive bowel sounds Skin: Present intact Results Labs 07/23/24 13:18 07/23/24 13:18 Labs: Laboratory Results - last 24 hr 07/23/24 13:10: Urine Color Yellow, Urine Appearance Sl cloudy, Urine pH 6.0, Ur Specific [place] <= 1.005, Urine Protein Negative, Urine Glucose (UA) Negative, Urine Ketones Negative, Urine Blood Negative, Urine Nitrate Negative, Urine Bilirubin Negative, Urine Urobilinogen 0.2, Ur Leukocyte Esterase Negative, Urine RBC None, Urine WBC None, Ur Squamous Epith Cells 10-20, Urine Bacteria Trace 07/23/24 13:18: WBC 10.2, RBC 5.35, Hgb 14.6, Hct 42.7, MCV 79.8 L, MCH 27.3, MCHC 34.2, RDW 13.2, Plt Count 334, MPV 10.3, Neut % (Auto) 67.6, Lymph % (Auto) 19.3, [place] % (Auto) 8.6, Eos % (Auto) 3.9, Baso % (Auto) 0.3, Neut # (Auto) 6.9, Lymph # (Auto) 2.0, [place] # (Auto) 0.9, Eos # (Auto) 0.4, Baso # (Auto) 0.0, ESR 13, Sodium 139, Potassium 2.6 L*, Chloride 103, Carbon Dioxide 28, Anion Gap 10.6, BUN 6 L, Creatinine 0.80, Estimated Creat Clear 113, Estimated GFR 79, Est GFR ( Amer) 95, Glucose 86, Calcium 8.0 L, Magnesium 1.1 L, Total Bilirubin 1.8 H, AST 50 H, ALT 85 H, Alkaline Phosphatase 69, C-Reactive Protein 40.7 H, Total Protein 7.5, Albumin 4.4, Globulin 3.1, Albumin/Globulin Ratio 1.4, Procalcitonin 0.052 Assessment and Plan *Assessment and plan (1) Acute gastroenteritis: Status: Acute Category: Medical Code(s): K52.9 - Noninfective gastroenteritis and colitis, unspecified (2) Family history of Crohn's disease: Status: Acute Category: Medical Code(s): Z83.79 - Family history of other diseases of the digestive system (3) Elevated LFTs: Status: Acute Category: Medical Code(s): R79.89 - Other specified abnormal findings of blood chemistry (4) Hyperbilirubinemia: Status: Acute Category: Medical Code(s): E80.6 - Other disorders of bilirubin metabolism Plan 1. Acute gastroenteritis/family history of Crohn's disease/enterocolitis 1 week of nausea vomiting and diarrhea, vomiting stopped 2 days ago but still nausea with diarrhea and abdominal pain especially after eating. No known exposures to anyone else with similar symptoms. No melena or hematochezia or mucus in her stool. A lot of bloating when eating and abdominal distention on exam. Both brother and mom have Crohn's disease. Her last colonoscopy was about 10 years ago. She does have an elevated CRP at 40.7 but she is acutely ill, awaiting PCR panel, it sounds like an acute viral gastroenteritis but she has been on antibiotics a couple of times in the past 6 months, somewhat concerning for C. difficile. Given her family history I would add on a fecal calprotectin. I recommend follow-up as an outpatient with our office. She is going to need an outpatient colonoscopy. 2. Elevated liver enzymes/hyperbilirubinemia Patient denies known elevated liver enzymes but believes that she has had some scleral icterus previously. You can sometimes see these elevated liver enzymes with an acute viral syndrome. We can follow-up as an outpatient. I would like to add on conjugated versus unconjugated bilirubin for a.m. labs if this has happened before.
[2024-07-23] MEDS: LACTATED RINGERS 1000ML 1,000 ML 125 ML IV (16:58)
[2024-07-23] MEDS: MAGNESIUM SULFATE IN WATER 2 GM/50 ML PIGGYBACK IV ×3 (16:58→22:29)
[2024-07-23 17:03] LABS: Lactic Acid 1.5 mmol/L (0.7-2.1)
[2024-07-23] MEDS: VANCOMYCIN HCL 50MG/ML 150ML KIT 125 MG PO (19:58)
[2024-07-23 21:59] LABS: Iron 45 ug/dL (37-170)
[2024-07-23 22:09] LABS: Total Iron Binding Capacity 294 ug/dL (265-497)
[2024-07-23 22:35] LABS: Ferritin 31.6 ng/ml (6.24-137)
[2024-07-23 23:07] LABS: Vitamin B12 423 pg/mL (239-931)
[2024-07-24] VITALS: BP 127/76; PULSE 81; PULSE 85; RESP 18; TEMP 36.4; O2SAT 99
[2024-07-24 04:00] VITALS: BP 128/79; PULSE 78; RESP 18; TEMP 36.4; O2SAT 100; BMI 29.2
[2024-07-24] MEDS: LACTATED RINGERS 1000ML 1,000 ML 125 ML IV (04:31)
[2024-07-24 06:06] VITALS: PULSE 80
--- NOTE | 2024-07-24 06:27 | PC.NURSE ---
Pt. a/ o x4. Replaced electrolytes. Bed low, locked, call light in reach.
[2024-07-24 06:44] LABS: Eosinophils # 0.4 Kmm3 (0.0-0.4); Lymphocytes # 1.7 K/mm3 (0.7-4.5); Monocytes # 0.5 K/mm3 (0.1-1.0); Nucleated Red Blood Cells # 0 10^3/uL; Nucleated Red Blood Cells % 0 %; Red Cell Distribution Width 13.2 % (11.5-17.5)
[2024-07-24 06:49] LABS: Basophils % 0.1 % (0.1-2.0); Eosinophils % 5.8 % (0.1-12.0); Hematocrit 36.2 % (37.0-47.0); Immature Granulocytes # 0.02 10^3uL; Immature Granulocytes % 0.3 %; Lymphocytes % 21.8 % (10-50); Mean Corpuscular HGB Conc 34.3 g/dL (31.8-35.4); Mean Corpuscular Hemoglobin 27.4 pg (27.0-31.2); Mean Corpuscular Volume 79.9 fl (81-99); Mean Platelet Volume 10.3 fl (7.4-10.4); Monocytes % 6.6 % (1.7-9.3); Neutrophils % 65.4 % (37.0-80.0); Platelet Count 283 K/mm3 (142-424); Red Blood Count 4.53 M/mm3 (4.20-5.40); Red Cell Distribution Width-SD 37.5 fL; White Blood Count 7.6 K/mm3 (4.8-10.8)
[2024-07-24 06:50] LABS: Albumin Level 3.2 g/dl (3.5-5.0); Chloride 113 mmol/L (98-107); Hemoglobin 12.4 g/dL (12.2-16.2); Potassium 3.3 mmoL/L (3.5-5.1); Sodium 137 mmol/L (136-145)
[2024-07-24 06:52] LABS: Creatinine Clearance Estimated 160 mL/min (50-200); Estimated Glomerular Filt Rate 110 ml/min (>60); GFR (African American) 133 ML/MIN (>60)
[2024-07-24 06:53] LABS: Alanine Aminotransferase 59 U/L (12-78); Albumin/Globulin Ratio 1.3 (1.1-1.8); Alkaline Phosphatase 64 U/L (38-126); Anion Gap 5.3 mEq/L (5-15); Aspartate Amino Transferase 31 U/L (14-36); Bilirubin,Total 0.9 mg/dl (0.2-1.3); Blood Urea Nitrogen < 2 mg/dl (7-17); Calcium 7.3 mg/dl (8.4-10.2); Carbon Dioxide 22 mmol/L (22.0-30.0); Globulin 2.4 g/dL (1.3-3.2); Glucose 93 mg/dl (74-100); Magnesium 2.2 mg/dl (1.6-2.3); Total Protein,Serum 5.6 g/dl (6.3-8.2)
[2024-07-24 07:10] LABS: Bilirubin,Direct 0.2 mg/dl (0.0-0.4); Bilirubin,Indirect 0.7 mg/dL (0.0-0.9); Bilirubin,Total 0.9 mg/dl (0.2-1.3); Bilirubin,Unconjugated 0.8 mg/dL (0.0-1.1)
[2024-07-24 08:00] VITALS: BP 127/85; PULSE 87; PULSE 90; RESP 17; TEMP 36.4; O2SAT 98
[2024-07-24] MEDS: ENOXAPARIN 40MG/0.4ML SYRINGE 40 MG SUBCUT (08:09)
--- NOTE | 2024-07-24 08:21 | EXP.DC.SUM ---
General Admission date:: 07/23/24 HPI HPI HPI: Mckenzie Miller is a 44-year-old female with a medical history significant for rheumatoid arthritis who presents with profuse diarrhea for a week and weakness. She states she is having diarrhea several times a day, very loose, dark, foul-smelling for 1 week. She initially started with nausea/vomiting but the vomiting has subsided but continues to have nausea. She also states she feels bloated after eating, and that she has diffuse mild abdominal pain. No recent travel history, changes diet. She does state that she was treated for UTI with Bactrim for 3 days about 5 days ago but her diarrhea was already present by then. Denies fever/chills, chest pain, shortness of breath. Of note, patient has a strong family history of Crohn's disease. Workup in the ED significant for potassium 2.6, magnesium 1.1, AST/ALT mildly elevated, CRP 40, MCV of 79.8. CT abdomen/pelvis showed consistent with enterocolitis. Case discussed with ED provider and she was made to admit patient for severe electrolyte abnormalities, diarrhea. Hospital Course Hospital Course Hospital Course: Mckenzie Miller is a 44-year-old female with a medical history significant for rheumatoid arthritis who presents with profuse diarrhea for a week and weakness. She states she is having diarrhea several times a day, very loose, dark, foul-smelling for 1 week. She initially started with nausea/vomiting but the vomiting has subsided but continues to have nausea. She also states she feels bloated after eating, and that she has diffuse mild abdominal pain. No recent travel history, changes diet. She does state that she was treated for UTI with Bactrim for 3 days about 5 days ago but her diarrhea was already present by then. Denies fever/chills, chest pain, shortness of breath. Of note, patient has a strong family history of Crohn's disease. Workup in the ED significant for potassium 2.6, magnesium 1.1, AST/ALT mildly elevated, CRP 40, MCV of 79.8. CT abdomen/pelvis showed consistent with enterocolitis. Case discussed with ED provider and she was made to admit patient for severe electrolyte abnormalities, diarrhea. #Intractable diarrhea #Gastroenteritis #Hypokalemia #Hypomagnesemia ? One week onset of profuse, watery, foul-smelling diarrhea. Was on Bactrim for 3 days but diarrhea had already started by then. Has had multiple UTIs in the past year requiring antibiotics. ? Does have mildly elevated AST/ALT suggesting viral illness and/for dehydration. Renal function stable. ? Initially treated empirically for suspected C. difficile, but stool PCR unremarkable. ? Clinically improved with IV fluid resuscitation. Continues to have intermittent diarrhea, recommended FiberCon tablets with Imodium as needed. ? Discharged with levofloxacin for 7 more days given severity of symptoms. Advised to hold Linzess until diarrhea resolves, which patient has not been taking anyway recently. #Microcytosis ? Iron panel normal. May be reactive from underlying rheumatoid arthritis. #Rheumatoid arthritis ? Continue weekly Trintellix. Exam Data for Last 24 hours Vital signs and Labs for Last 24 Hours: Temp Pulse Resp BP Pulse Ox O2 Del Method 97.6 F 80 18 128/79 100 Room Air 07/24/24 04:00 07/24/24 06:06 07/24/24 04:00 07/24/24 04:00 07/24/24 04:00 07/24/24 06:32 Laboratory Results - last 24 hr 07/23/24 13:10: Urine Color Yellow, Urine Appearance Sl cloudy, Urine pH 6.0, Ur Specific [place] <= 1.005, Urine Protein Negative, Urine Glucose (UA) Negative, Urine Ketones Negative, Urine Blood Negative, Urine Nitrate Negative, Urine Bilirubin Negative, Urine Urobilinogen 0.2, Ur Leukocyte Esterase Negative, Urine RBC None, Urine WBC None, Ur Squamous Epith Cells 10-20, Urine Bacteria Trace 07/23/24 13:18: WBC 10.2, RBC 5.35, Hgb 14.6, Hct 42.7, MCV 79.8 L, MCH 27.3, MCHC 34.2, RDW 13.2, Plt Count 334, MPV 10.3, Neut % (Auto) 67.6, Lymph % (Auto) 19.3, [place] % (Auto) 8.6, Eos % (Auto) 3.9, Baso % (Auto) 0.3, Neut # (Auto) 6.9, Lymph # (Auto) 2.0, [place] # (Auto) 0.9, Eos # (Auto) 0.4, Baso # (Auto) 0.0, ESR 13, Sodium 139, Potassium 2.6 L*, Chloride 103, Carbon Dioxide 28, Anion Gap 10.6, BUN 6 L, Creatinine 0.80, Estimated Creat Clear 113, Estimated GFR 79, Est GFR ( Amer) 95, Glucose 86, Calcium 8.0 L, Magnesium 1.1 L, Iron 45, TIBC 294, Iron Saturation 15.58925, Ferritin 31.6, Total Bilirubin 1.8 H, AST 50 H, ALT 85 H, Alkaline Phosphatase 69, C-Reactive Protein 40.7 H, Total Protein 7.5, Albumin 4.4, Globulin 3.1, Albumin/Globulin Ratio 1.4, Vitamin B12 423, Procalcitonin 0.052 07/23/24 13:34: Stl Aeromonas (PCR) Not detected, Stl C. cayetanensis PCR Not detected, Stool Rotavirus (PCR) Not detected, Stl Adenov F 40/41 PCR Not detected, Stool Astrovirus (PCR) Not detected, Stool Campylobacter PCR Not detected, Stl C.difficile Tox PCR Not detected, Stool Cryptosporidium PCR Not detected, Stl E.coli Shiga Tox PCR Not detected, Stool E coli O157 PCR Not detected, Stl Enterotoxigenic E PCR Not detected, Stool EPEC (PCR) Not detected, Stool EAEC (PCR) Not detected, Stl E. histolytica PCR Not detected, Stool Giardia Lamblia PCR Not detected, Stool Salmonella PCR Not detected, Stool Sapovirus (PCR) Not detected, Stl P. shigelloides PCR Not detected, Stl Shigella/EIEC PCR Not detected, St Y.enterocolitica PCR Not detected, Stool Vibrio (PCR) Not detected, Stl Vibrio cholerae PCR Not detected, Stl Norovirus GI/GII PCR Not detected 07/23/24 16:40: Lactate 1.5 07/24/24 06:35: WBC 7.6 D, RBC 4.53, Hgb 12.4 D, Hct 36.2 L, MCV 79.9 L, MCH 27.4, MCHC 34.3, RDW 13.2, Plt Count 283, MPV 10.3, Neut % (Auto) 65.4, Lymph % (Auto) 21.8, [place] % (Auto) 6.6, Eos % (Auto) 5.8, Baso % (Auto) 0.1, Neut # (Auto) 5.0, Lymph # (Auto) 1.7, [place] # (Auto) 0.5, Eos # (Auto) 0.4, Baso # (Auto) 0.0, Sodium 137, Potassium 3.3 L D, Chloride 113 H, Carbon Dioxide 22, Anion Gap 5.3, BUN < 2 L D, Creatinine 0.60 D, Estimated Creat Clear 160, Estimated GFR 110, Est GFR ( Amer) 133 D, Glucose 93, Calcium 7.3 L, Magnesium 2.2 D, Total Bilirubin 0.9 07/24/24 06:35: Total Bilirubin 0.9, Direct Bilirubin 0.2, Conjugated Bilirubin 0.0, Indirect Bilirubin 0.7, Unconjugated Bilirubin 0.8, AST 31 D, ALT 59 D, Alkaline Phosphatase 64, Total Protein 5.6 L D, Albumin 3.2 L D, Globulin 2.4, Albumin/Globulin Ratio 1.3 I & O for Last 24 hours: Intake & Output 07/21/24 07/22/24 07/23/24 07/24/24 23:59 23:59 23:59 23:59 Intake Total 635 / 1085 1520 / 1520 Output Total 900 / 900 Balance 635 / 685 620 / 620 Weight 80.286 kg 82.735 kg Constitutional Constitutional: no acute distress *Routine HEENT Exam Head: Present normocephalic Eye: Present EOMI and PERRL ENT: Present mucous membranes moist *Routine Neck Exam Neck: Present supple; Absent lymphadenopathy *Routine Respiratory Exam Respiratory: Present CTA bilaterally *Routine Cardiovascular Exam Cardiovascular: Present RRR *Routine Abdominal Exam Abdominal: Present soft and normoactive bowel sounds; Absent tenderness *Routine Extremities Exam Extremities: Absent cyanosis, clubbing or edema *Routine Skin Exam Skin: Present warm; Absent rash *Routine Neurological Exam Neurological: Present alert and oriented X3 Results Data Completed and Pending Labs on day of discharge: Labs from last 24 hours 07/24/24 07/24/24 07/23/24 06:35 06:35 16:40 WBC 7.6 D RBC 4.53 Hgb 12.4 D Hct 36.2 L MCV 79.9 L MCH 27.4 MCHC 34.3 RDW 13.2 Plt Count 283 MPV 10.3 Neut % (Auto) 65.4 Lymph % (Auto) 21.8 [place] % (Auto) 6.6 Eos % (Auto) 5.8 Baso % (Auto) 0.1 Neut # (Auto) 5.0 Lymph # (Auto) 1.7 [place] # (Auto) 0.5 Eos # (Auto) 0.4 Baso # (Auto) 0.0 ESR Sodium 137 Potassium 3.3 L D Chloride 113 H Carbon Dioxide 22 Anion Gap 5.3 BUN < 2 L D Creatinine 0.60 D Estimated Creat Clear 160 Estimated GFR 110 Est GFR ( Amer) 133 D Glucose 93 Lactate 1.5 Calcium 7.3 L Magnesium 2.2 D Iron TIBC Iron Saturation Ferritin Total Bilirubin 0.9 0.9 Direct Bilirubin 0.2 Conjugated Bilirubin 0.0 Indirect Bilirubin 0.7 Unconjugated Bilirubin 0.8 AST 31 D ALT 59 D Alkaline Phosphatase 64 C-Reactive Protein Total Protein 5.6 L D Albumin 3.2 L D Globulin 2.4 Albumin/Globulin Ratio 1.3 Vitamin B12 Procalcitonin Urine Color Urine Appearance Urine pH Ur Specific [place] Urine Protein Urine Glucose (UA) Urine Ketones Urine Blood Urine Nitrate Urine Bilirubin Urine Urobilinogen Ur Leukocyte Esterase Urine RBC Urine WBC Ur Squamous Epith Cells Urine Bacteria Stl Aeromonas (PCR) Stl C. cayetanensis PCR Stool Rotavirus (PCR) Stl Adenov F 40/ PCR Stool Astrovirus (PCR) Stool Campylobacter PCR Stl C.difficile Tox PCR Stool Cryptosporidium PCR Stl E.coli Shiga Tox PCR Stool E coli O157 PCR Stl Enterotoxigenic E PCR Stool EPEC (PCR) Stool EAEC (PCR) Stl E. histolytica PCR Stool Giardia Lamblia PCR Stool Salmonella PCR Stool Sapovirus (PCR) Stl P. shigelloides PCR Stl Shigella/EIEC PCR St Y.enterocolitica PCR Stool Vibrio (PCR) Stl Vibrio cholerae PCR Stl Norovirus GI/GII PCR 07/23/24 07/23/24 07/23/24 13:34 13:18 13:10 WBC 10.2 RBC 5.35 Hgb 14.6 Hct 42.7 MCV 79.8 L MCH 27.3 MCHC 34.2 RDW 13.2 Plt Count 334 MPV 10.3 Neut % (Auto) 67.6 Lymph % (Auto) 19.3 [place] % (Auto) 8.6 Eos % (Auto) 3.9 Baso % (Auto) 0.3 Neut # (Auto) 6.9 Lymph # (Auto) 2.0 [place] # (Auto) 0.9 Eos # (Auto) 0.4 Baso # (Auto) 0.0 ESR 13 Sodium 139 Potassium 2.6 L* Chloride 103 Carbon Dioxide 28 Anion Gap 10.6 BUN 6 L Creatinine 0.80 Estimated Creat Clear 113 Estimated GFR 79 Est GFR ( Amer) 95 Glucose 86 Lactate Calcium 8.0 L Magnesium 1.1 L Iron 45 TIBC 294 Iron Saturation 15.16897 Ferritin 31.6 Total Bilirubin 1.8 H Direct Bilirubin Conjugated Bilirubin Indirect Bilirubin Unconjugated Bilirubin AST 50 H ALT 85 H Alkaline Phosphatase 69 C-Reactive Protein 40.7 H Total Protein 7.5 Albumin 4.4 Globulin 3.1 Albumin/Globulin Ratio 1.4 Vitamin B12 423 Procalcitonin 0.052 Urine Color Yellow Urine Appearance Sl cloudy Urine pH 6.0 Ur Specific [place] <= 1.005 Urine Protein Negative Urine Glucose (UA) Negative Urine Ketones Negative Urine Blood Negative Urine Nitrate Negative Urine Bilirubin Negative Urine Urobilinogen 0.2 Ur Leukocyte Esterase Negative Urine RBC None Urine WBC None Ur Squamous Epith Cells 10-20 Urine Bacteria Trace Stl Aeromonas (PCR) Not detected Stl C. cayetanensis PCR Not detected Stool Rotavirus (PCR) Not detected Stl Adenov F 40/41 PCR Not detected Stool Astrovirus (PCR) Not detected Stool Campylobacter PCR Not detected Stl C.difficile Tox PCR Not detected Stool Cryptosporidium PCR Not detected Stl E.coli Shiga Tox PCR Not detected Stool E coli O157 PCR Not detected Stl Enterotoxigenic E PCR Not detected Stool EPEC (PCR) Not detected Stool EAEC (PCR) Not detected Stl E. histolytica PCR Not detected Stool Giardia [place]lia PCR Not detected Stool Salmonella PCR Not detected Stool Sapovirus (PCR) Not detected Stl P. shigelloides PCR Not detected Stl Shigella/EIEC PCR Not detected St Y.enterocolitica PCR Not detected Stool Vibrio (PCR) Not detected Stl Vibrio cholerae PCR Not detected Stl Norovirus GI/GII PCR Not detected DS: Diagnosis Discharge Diagnosis (1) Acute gastroenteritis: Status: Acute Code(s): K52.9 - Noninfective gastroenteritis and colitis, unspecified Meds Home Medications and Allergies Home Medications ?Medication ?Instructions ?Recorded ?Confirmed ?Type cyclobenzaprine 10 mg tablet 10 mg PO BID 07/23/24 07/27/24 History diclofenac sodium 75 mg 75 mg PO BID PRN Pain (Scale Score 07/23/24 07/27/24 History tablet,delayed release 4-6) montelukast 10 mg tablet 10 mg PO PM 07/23/24 07/27/24 History ondansetron 4 mg disintegrating 4 mg PO Q8HP PRN Nausea 07/23/24 07/27/24 History tablet vortioxetine 20 mg tablet 20 mg PO DAILY 07/23/24 07/27/24 History (Trintellix) calcium polycarbophil 625 mg 1,250 mg (2 x 625 mg) PO BID 14 07/24/24 07/27/24 Rx tablet (FiberCon) days #56 tabs levofloxacin 750 mg tablet 750 mg PO 1100 7 days #7 tabs 07/24/24 07/27/24 Rx etanercept 50 mg/mL (1 mL) 50 mg SQ QWEEK 07/27/24 07/27/24 History subcutaneous pen injector (Enbrel SureClick) hyoscyamine sulfate 0.125 mg 0.125 mg PO QID PRN abdominal pain 07/27/24 07/27/24 Rx sublingual tablet #120 tabs sodium,potassium,mag sulfates 17.5 See Rx Instructions PO .COMPLEX 08/03/24 Rx gram-3.13 gram-1.6 gram oral soln #354 mL (Suprep Bowel Prep Kit) New Prescriptions to Start Prescriptions: calcium polycarbophil [FiberCon] Prakash Underwood levofloxacin Prakash Underwood Allergies Allergy/AdvReac Type Severity Reaction Status Date / Time No Known Allergies Allergy Verified 07/27/24 13:05 Discharge Plan Disposition Patient Disposition: Home, Self-Care Condition: Fair Follow up Plan Follow up with: Jody Kumar APRN [Nurse Practitioner, Gastroenterology] - 07/27/24 1:00 pm Prescriptions/Medication Reconciliation: New levofloxacin 750 mg Tablet 750 mg PO 1100 7 Days Qty: 7 0RF calcium polycarbophil [FiberCon] 625 mg Tablet 1,250 mg PO BID 14 Days Qty: 56 0RF Continued ondansetron 4 mg tablet,disintegrating 4 mg PO Q8HP PRN (Reason: Nausea) Patient Comments: DISSOLVE 1 TABLET ON TONGUE AND SWALLOW EVERY 8 HOURS NEEDED FOR NAUSEA OR VOMITING FOR UP TO 7 DAYS cyclobenzaprine 10 mg tablet 10 mg PO BID diclofenac sodium 75 mg tablet,delayed release (DR/EC) 75 mg PO BID PRN (Reason: Pain (Scale Score 4-6)) montelukast 10 mg tablet 10 mg PO PM Trintellix 20 mg tablet 20 mg PO DAILY No Action Enbrel SureClick 50 mg/mL (1 mL) pen injector 50 mg SQ QWEEK hyoscyamine sulfate 0.125 mg tablet, sublingual 0.125 mg PO QID PRN (Reason: abdominal pain) Qty: 120 2RF sodium,potassium,mag sulfates [Suprep Bowel Prep Kit] 17.5-3.13-1.6 gram recon soln See Rx Instructions PO .COMPLEX Qty: 354 0RF Rx Instructions: DILUTE; drink full amount early evening before AND next morning at least 4-5 hr before procedure; follow w 960 mL water PO Problem Reconciliation Problems Reviewed?: Yes Patient Discharge Instructions Patient Instructions: DI for Hypokalemia, DI for Hypocalcemia, DI for Colitis, Stop Light Infection Print Language: Irish Providers Primary Care Provider: Provider,Referral Admit Provider: Prakash Underwood Attending Provider: Prakash Underwood
--- NOTE | 2024-07-24 08:36 | HMH.PHAINT1 ---
Pharmacy Intervention Comments: HOME MEDICATION LIST VERIFIED USING LIST FROM OUTPATIENT PHARMACY
[2024-07-24] MEDS: POTASSIUM CHLORIDE 20MEQ TAB 40 MEQ PO (08:47)
[2024-07-24] MEDS: CALCIUM POLYCARBOPHIL 625MG TAB 1250 MG PO (11:43)
[2024-07-24] MEDS: levoFLOXacin 750 MG TABLET PO (11:43)
[2024-07-26 01:07] LABS: Calprotectin, Fecal 542 ug/g (0-120)
--- NOTE | 2024-07-27 11:22 | SW/DCPLANNER ---
Spoke with patient on the phone. Patient stated that she is doing well. Patient stated that she is aware of her upcoming appointments. Patient stated that she was able to get her new medicine picked up from clinic pharmacy. Patient stated that she has no concerns or questions at this time. Ryan Lima
[2024-07-27 17:18] LABS: Saccharomyces cerevisiae, IgA <20.0 Units (0.0-24.9)
[2024-07-31 09:33] LABS: 1,25 Dihydroxy Vitamin D 108 pg/mL (.); 1,25-Dihydroxy, Vitamin D-2 <10 pg/mL (.); 1,25-Dihydroxy, Vitamin D-3 101 pg/mL (.)
== END 2024-07-24 12:07 | disposition home or self-care (01) ==
LOC: ER 14:48 → 2ND 14:55
PROVIDERS: Internal Medicine Gastroenterology; Nurse Practitioner Family; Physician Assistant; Admitting Provider Student in an Organized Health Care Education/Training Program; Emergency Provider Emergency Medicine; Visit Provider Student in an Organized Health Care Education/Training Program
DX: K52.9 Noninfective gastroenteritis and colitis, unspecified (principal); E87.6 Hypokalemia; E83.42 Hypomagnesemia; M06.9 Rheumatoid arthritis, unspecified; E80.6 Other disorders of bilirubin metabolism; E83.51 Hypocalcemia; J45.909 Unspecified asthma, uncomplicated; D75.89 Other specified diseases of blood and blood-forming organs; R79.89 Other specified abnormal findings of blood chemistry; Z83.79 Family history of other diseases of the digestive system; Z85.42 Personal history of malignant neoplasm of other parts of uterus; Z87.440 Personal history of urinary (tract) infections; Z90.49 Acquired absence of other specified parts of digestive tract; Z79.899 Other long term (current) drug therapy
CPT/HCPCS: 36415; 74177; 80053; 81001; 82247; 82248; 82607; 82652; 82728; 83540; 83550; 83605; 83735; 83993; 84145; 85025; 85651; 86140; 86256; 86671; 87177; 87507; 96361; 96365; 96366; 96367; 96372; 96374; 96375; 96376; 99285; G0378; J0612; J1650; J1885; J2405; J3475; J3480; J7030; J7120; Q9967

== ENCOUNTER 2024-08-19 13:05 | Day surgery (SDC) | payer BC, MEDICAID, SELFPAY ==
[2024-08-12 15:42] VITALS: BMI 27.7
[2024-08-19 13:42] VITALS: BP 130/91; PULSE 75; RESP 16; TEMP 36.4; O2SAT 100
[2024-08-19] MEDS: LACTATED RINGERS 1000ML 1,000 ML 50 ML IV (13:51)
--- NOTE | 2024-08-19 14:00 | EXP.ANES.CKL ---
[facility] Disclaimer: The information contained in this section may have been updated after the patient was seen, as this information can be updated by other users. Medical History UTI (urinary tract infection) Uterine cancer Pneumonia Rheumatoid arthritis Asthma Surgical History H/O foot surgery Hx of excision of lamina of cervical vertebra for decompression of spinal cord Hx of appendectomy History of cholecystectomy H/O: hysterectomy Family History Other Acute Crohn's disease Dementia Heart attack Hyperlipidemia Hypertension Renal failure Social History Smoking Status: Never smoker alcohol intake: never substance use type: denies use current occupational status: employed Travel in the last 8 weeks?: None Have you lived/traveled outside [place] in past 30 days?: No Contact w/someone who lives/traveled outside [place] past 30 days?: No Exposure to someone with infectious disease in past 14 days?: No Do you have a fever (greater than 100.4 F or 38 C)?: No Have you tested positive for COVID-19?: No Exposed to someone with COVID-19 in past 14 days?: No Do you have a sore throat?: No Do you have a cough?: No Do you have any weakness?: No Do you have any diarrhea?: No Are you experiencing any unusual bleeding?: No Do you have any muscle aches/pain?: No Do you have any abdominal pain?: No Are you experiencing loss of taste or smell?: No [facility] Anesthesia Checklist Patient Identification Patient Identification: Arm Band and Verbal (Name & ) Structural Data Admitted From: Home Planned Operative Procedure/s: colonoscopy Consent for Planned Operative Procedure(s) Verified: Yes Verified Documents: Surgical Consent NPO Status Verified Time NPO: 00:00 Additional verifications Anesthesia Reactions: No Airway Assessment Mallampati Score:: Class II C-Spine Mobility Assessed: Yes TMJ Mobility Assessed: Yes Dentition: Good Dentition Neurological Assessment Level of Consciousness: Awake, Alert and Appropriate Hx Seizures: No Numbness or tingling in extremities: No Anesthesia Plan Anesthesia Risk discussed: Yes Anesthesia Plan: Verified ASA Class: II Anesthesia Type: MAC
--- NOTE | 2024-08-19 15:00 | EXP.HP ---
History of Present Illness *Admission Date: 08/19/24 *History of present illness: Mrs. Miller is a 44-year-old female with recent enterocolitis and a family history of Crohn's disease who is here for diagnostic colonoscopy. The examination is deemed medically necessary for diagnostic colonoscopy. The patient has been seen, interviewed and examined prior to the procedure by both myself and the anesthesia provider. [facility] Disclaimer: The information contained in this section may have been updated after the patient was seen, as this information can be updated by other users. Medical History UTI (urinary tract infection) Uterine cancer Pneumonia Rheumatoid arthritis Asthma Surgical History H/O foot surgery Hx of excision of lamina of cervical vertebra for decompression of spinal cord Hx of appendectomy History of cholecystectomy H/O: hysterectomy Family History Other Acute Crohn's disease Dementia Heart attack Hyperlipidemia Hypertension Renal failure Social History Smoking Status: Never smoker alcohol intake: never substance use type: denies use current occupational status: employed Travel in the last 8 weeks?: None Have you lived/traveled outside [place] in past 30 days?: No Contact w/someone who lives/traveled outside [place] past 30 days?: No Exposure to someone with infectious disease in past 14 days?: No Do you have a fever (greater than 100.4 F or 38 C)?: No Have you tested positive for COVID-19?: No Exposed to someone with COVID-19 in past 14 days?: No Do you have a sore throat?: No Do you have a cough?: No Do you have any weakness?: No Do you have any diarrhea?: No Are you experiencing any unusual bleeding?: No Do you have any muscle aches/pain?: No Do you have any abdominal pain?: No Are you experiencing loss of taste or smell?: No Other Medical History Have you received the Flu Vaccine for this season: No Have you received the Pneumonia Vaccine: No Review of Systems Review of Systems Review of systems (narrative): Negative *Cardiovascular Comments: Negative *Gastrointestinal Comments: Negative *Genitourinary Comments: Negative *Musculoskeletal Comments: Negative *Neurologic Comments: Negative Meds Home Medications and Allergies Home Medications ?Medication ?Instructions ?Recorded ?Confirmed ?Type cyclobenzaprine 10 mg tablet 10 mg PO BID 07/23/24 08/19/24 History diclofenac sodium 75 mg 75 mg PO BID PRN Pain (Scale Score 07/23/24 08/19/24 History tablet,delayed release 4-6) montelukast 10 mg tablet 10 mg PO PM 07/23/24 08/19/24 History ondansetron 4 mg disintegrating 4 mg PO Q8HP PRN Nausea 07/23/24 08/19/24 History tablet vortioxetine 20 mg tablet 20 mg PO DAILY 07/23/24 08/19/24 History (Trintellix) calcium polycarbophil 625 mg 1,250 mg (2 x 625 mg) PO BID 14 07/24/24 08/19/24 Rx tablet (FiberCon) days #56 tabs levofloxacin 750 mg tablet 750 mg PO 1100 7 days #7 tabs 07/24/24 08/19/24 Rx hyoscyamine sulfate 0.125 mg 0.125 mg PO QID PRN abdominal pain 07/27/24 08/19/24 Rx sublingual tablet #120 tabs New Prescriptions to Start Prescriptions: Allergies Allergy/AdvReac Type Severity Reaction Status Date / Time No Known Allergies Allergy Verified 07/27/24 13:05 Exam Data for Last 24 hours Vital signs and Labs for Last 24 Hours: Temp Pulse Resp BP Pulse Ox O2 Del Method 97.5 F L 75 16 130/91 H 100 Room Air 08/19/24 13:42 08/19/24 13:42 08/19/24 13:42 08/19/24 13:42 08/19/24 13:42 08/19/24 13:42 *Routine HEENT Exam Head: Present normocephalic Eye: Present EOMI and PERRL ENT: Present mucous membranes moist *Routine Neck Exam Neck: Present supple *Routine Respiratory Exam Respiratory: Present CTA bilaterally *Routine Cardiovascular Exam Cardiovascular: Present RRR *Routine Abdominal Exam Abdominal: Present soft and normoactive bowel sounds; Absent tenderness *Routine Rectal Exam Rectal:: deferred *Routine Genitalia Exam Genitalia:: deferred *Routine Extremities Exam Extremities: Absent cyanosis, clubbing or edema *Routine Skin Exam Skin: Present warm; Absent rash *Routine Neurological Exam Neurological: Present alert and oriented X3 Assessment and Plan *Assessment and plan (1) Diarrhea: Status: Acute Category: Medical Code(s): R19.7 - Diarrhea, unspecified (2) Fecal urgency: Status: Acute Category: Medical Code(s): R15.2 - Fecal urgency (3) Change in bowel habits: Status: Acute Category: Medical Code(s): R19.4 - Change in bowel habit (4) Family history of Crohn's disease: Status: Acute Category: Medical Code(s): Z83.79 - Family history of other diseases of the digestive system (5) Enterocolitis: Status: Acute Category: Medical Code(s): K52.9 - Noninfective gastroenteritis and colitis, unspecified (6) Abdominal cramps: Status: Acute Category: Medical Code(s): R10.9 - Unspecified abdominal pain (7) Bloating: Status: Acute Category: Medical Code(s): R14.0 - Abdominal distension (gaseous) Plan A/P: 1. Diarrhea, bloating, crampy discomfort and change in bowel habits with family history of Crohn's disease is the preprocedural diagnosis. The patient will be anesthetized/sedated using MAC sedation. The patient has been seen and examined. Cardiac and lung assessment prior to the examination is stable. Proceed with planned diagnostic colonoscopy.
--- NOTE | 2024-08-19 15:13 | HMH.PROCNOTE ---
[facility] Procedure Note Date: 08/19/24 Time: 15:28 Procedure Note:: Colonoscopy Procedure Report: Colonoscopy with cold biopsies Endoscopist: Gui Jordan II, MD Referring physician: Porsha Kebede Date of Procedure: August 19, 2024 Equipment: Olympus 190 variable stiffness pediatric colonoscope Sedation: MAC sedation Indication: Mrs. Miller is a 44-year-old female who is here for diagnostic colonoscopy. She did go to the ED 4 to 6 weeks ago with nausea, vomiting and diarrhea. She was felt to have a pathogen and viral enterocolitis. This did resolve. The patient formally had some chronic constipation and was taking Linzess. Now she reports some postprandial diarrhea with some cramps and bloating. The patient reports no blood with her bowel movements but does see occasional and infrequent mucus. Both her mother and brother have Crohn's disease. Her last colonoscopy was 10 to 15 years ago. The patient does have rheumatoid arthritis and was on Enbrel. Her trimmer hand recommended that she stop this because of its correlation with IBD and Crohn's disease. Procedure: Prior to the procedure, a history and physical exam was performed, and patient's medications and allergies were reviewed. The risks, benefits and alternatives of the sedation and procedure were discussed with the patient. All questions were answered and informed consent was obtained. The patient was brought to the procedure room. Patient identification and proposed procedure were verified by the physician and the nurse. The patient was placed in a left lateral decubitus position and the scope was passed under direct vision. Throughout the procedure, the patient's blood pressure, pulse, and oxygen saturations were monitored continuously. The colonoscopy was accomplished without difficulty. The patient tolerated the procedure well. Findings: On digital rectal examination there was normal rectal tone. There were no external hemorrhoids. The colonoscope was introduced through the anal canal to the rectum and advanced to the cecum. The ileocecal valve and appendiceal orifice were identified. The scope was advanced a short distance into the ileum which appeared grossly normal. There were 2 or 3 very tiny punctate erosions in the ileum and cold biopsies were obtained. The scope was then withdrawn into the colon. The cecum, ascending, transverse, descending, sigmoid and rectum were grossly normal. Random cold biopsies were taken from both the right and left colon to rule out microscopic colitis. There were no mucosal abnormalities identified. Upon retroflexion within the rectum there were grade 1 internal hemorrhoids. There were small hypertrophied anal papilla. The preparation was excellent throughout with [place] Preparation Score of 9. The cecal time was 12 minutes. Impression: 1. Normal colonoscopy with intubation of the terminal ileum with 2 or 3 tiny punctate ileal erosions Plan: There was clearly no evidence of Crohn's disease or IBD. I will follow-up the biopsies to rule out microscopic colitis or ileitis. We will discuss management of her IBS.
[2024-08-19 15:30] VITALS: BP 116/68; PULSE 92; RESP 18; TEMP 36.1; O2SAT 96
[2024-08-19 15:40] VITALS: BP 99/64; PULSE 90; RESP 18; O2SAT 97
[2024-08-19 15:50] VITALS: BP 130/81; PULSE 77; RESP 17; O2SAT 100
[2024-08-19 16:00] VITALS: BP 126/86; PULSE 79; RESP 19; O2SAT 95
== END 2024-08-19 16:17 | disposition home or self-care (01) ==
PROVIDERS: PCP Family Medicine; Visit Provider Internal Medicine Gastroenterology
PROC: 0DJD8ZZ Inspection of Lower Intestinal Tract, Via Natural or Artificial Opening Endoscopic (ICD-10-PCS; CPT 45378; principal; 2024-08-19 14:30)
DX: R19.7 Diarrhea, unspecified (principal); K64.0 First degree hemorrhoids; R15.2 Fecal urgency; R10.9 Unspecified abdominal pain; R14.0 Abdominal distension (gaseous); J45.909 Unspecified asthma, uncomplicated; K59.09 Other constipation; M06.9 Rheumatoid arthritis, unspecified; Z83.79 Family history of other diseases of the digestive system; Z90.49 Acquired absence of other specified parts of digestive tract; Z79.899 Other long term (current) drug therapy; Z92.25 Personal history of immunosuppression therapy
CPT/HCPCS: 45380; J2003; J2704; J7120